=== PATIENT | male | born 1975 | race Caucasian/White ===

== ENCOUNTER 2018-08-31 15:13 | Outpatient (REF) | payer OTHER, SELFPAY ==
[2018-08-31 19:22] LABS: Cholesterol 216 mg/dL (50-200); HDL Cholesterol 40 mg/dL (40-60); LDL CHOLESTEROL 149 mg/dL (<100); Triglyceride 127 mg/dL (30-150)
== END 2018-08-31 15:33 ==
LOC: NCHCN 15:13
PROVIDERS: PCP Nurse Practitioner Family; Visit Provider Family Medicine
DX: Z13.220 Encounter for screening for lipoid disorders (principal); Z00.00 Encounter for general adult medical examination without abnormal findings
CPT/HCPCS: 80061; 83721

== ENCOUNTER 2022-06-06 09:11 | Day surgery (SDC) | payer OTHER, SELFPAY ==
[2022-06-06 09:21] VITALS: BP 139/86; PULSE 63; RESP 18; TEMP 37; O2SAT 94
[2022-06-06] MEDS: Lactated Ringers 1,000 ML 80 ML IV (09:48)
--- NOTE | 2022-06-06 10:02 | W.ANESPRE ---
General Info Date of Service Date Performed: 06/06/22 Height: 5 ft 8 in Weight: 110.8 kg Body Mass Index (BMI): 37.1 Surgical Procedure: Operation Date: 06/06/22 10:35 Proposed Procedure Side Surgeon p Colonoscopy Eligio Christie MD Meds Allergies and Home Medications Allergies Allergy/AdvReac Type Severity Reaction Status Date / Time No Known Allergies Allergy Verified 06/06/22 09:20 Home Medication Medication Instructions Recorded Unknown [No Known Home Meds] 05/26/22 bisacodyl 5 mg tablet,delayed 5 mg PO ONCE #4 tabs 05/26/22 release (Dulcolax (bisacodyl)) polyethylene glycol 3350 17 17 g PO ONCE #238 grams 05/26/22 gram/dose oral powder Current Visit Medications: Current Medications Generic Name Dose Route Start Last Admin Trade Name Freq PRN Reason Stop Dose Admin Ringer's Solution 1,000 mls @ 80 mls/hr 06/06/22 06:00 06/06/22 09:48 IV 06/06/22 23:59 80 mls/hr INFUSION FRANCIS Administration IV Miscellaneous Supplies 1 each 06/06/22 06:00 Iv Access IV 06/06/22 23:59 DIRECTED FRANCIS Sodium Chloride 0 ml 06/06/22 06:00 Normal Saline Flush 10 Ml Syr IV 06/06/22 23:59 PRN PRN Sodium Chloride 0 ml 06/06/22 06:00 Normal Saline 10 Ml Vial IJ 06/06/22 23:59 DIRECTED PRN Sterile Water 0 ml 06/06/22 06:00 Water,Injection,Sterile 10 Ml Vial IJ 06/06/22 23:59 DIRECTED PRN PFSH Active Problems Active Problems: Problem Status Onset Code GERD (gastroesophageal reflux disease) K21.9 Screening for colon cancer Z12.11 Medical History Medical History BMI 36.0-36.9,adult Umbilical hernia Tobacco Smoking/Tobacco Use Status: Former Tobacco Use Alcohol Alcohol Intake: current Alcohol intake frequency: 0-2 drinks per day Alcohol type: beer Substance Use Substance use: Never Substance use type: does not use Vital Signs and Lab Results Vital Signs Most Recent Vital Signs in EMR: Most Recent Vital Signs Temp Pulse Resp BP Pulse Ox 37 C 63 18 139/86 94 06/06/22 09:21 06/06/22 09:21 06/06/22 09:21 06/06/22 09:21 06/06/22 09:21 Lab Results Blood Type / Crossmatch: No Data to Display Complete Blood Count: No Data to Display Complete Metabolic Panel: No Data to Display Liver Function Panel: No Data to Display Coagulation Panel: No Data to Display Cardiac Panel: No Data to Display Arterial Blood Gas: No Data to Display Venous Blood Gas: No Data to Display Pancreas Panel: No Data to Display Thyroid Panel: No Data to Display Infectious Disease: No Data to Display Blood Cultures: No Data to Display Toxicology Panel: No Data to Display Anesthesia Assessment and Plan Anesthesia History Personal History: No History of Anesthesia Complications Family History: No Family History of Anesthesia Complications Exercise Tolerance Exercise Tolerance: Metabolic Equivalents>4 Pertinent Negatives Pertinent Negatives: No Major Cardiovascular Symptoms or Complaints, No Major Pulmonary Symptoms or Complaints and No History of CVA/TIA Cardiac & Pulmonary Exam Cardiac Exam: Normal S1/S2 Heart Sounds Pulmonary Exam: Clear Bilateral Breath Sounds Implantable Cardiac Device Does patient have a Pacemaker or an ICD?: No Airway Exam Known Difficult Airway: No Mallampati Class: 3 Mouth Opening: Normal (> 3cm) Thyromental Distance: Greater than 3 cm Neck Range of Motion: Full ROM Neck Circumference: Normal Teeth Condition: Generalized Poor Dentition and Removable Dentures/Plates Upper ASA Classification ASA Score: ASA 3 Emergency Case?: No NPO Status NPO Status: NPO Clears >2 hours, Solids >8 hours Anesthesia Plan Resuscitation Status: Full Code Anesthesia Technique: General Anesthesia Airway Planned: Natural Airway Monitors Used: Standard Monitors
[2022-06-06 10:13] VITALS: BMI 37.1
--- NOTE | 2022-06-06 10:39 | BOWEL_PTH ---
PATIENT: Brandin Mathew LOC: [facility] U#:[id number] AGE/SX: 47/M ROOM: RE06/06/[address]: Eligio Christie : 1975 BED: DIS: 06/06/2022 SPEC #: [id number] RECD: 06/06/22 12:28 STATUS: FAB RE #: [id number] BENJAMIN: 06/06/22 10:[address]: Eligio Christie DEPT: Surgical Specimen RECD BY: Saima Arevalo ENTERED: 06/06/22 12:30 SP TYPE: Bowel OTHR DR: Brandin Romero Tissues: 1 - BIOPSY BOWEL 2 - BIOPSY BOWEL 3 - BIOPSY BOWEL 4 - BIOPSY BOWEL Procedures: GROSS AND MICRO LEVEL 4 Comments: [id number]
[2022-06-06 10:54] VITALS: BP 126/82; PULSE 77; RESP 18; TEMP 36.4; O2SAT 94
--- NOTE | 2022-06-06 10:59 | ENDO_ITS ---
Date of service: 06/06/22 Time of Service: 11:03 Endoscopy Report PROCEDURE DESCRIPTION: Procedures performed: 1. Colonoscopy with snare polypectomy x4 Preoperative diagnosis: Screening colonoscopy Postoperative diagnosis: Colon polyps Surgeon: Tutu Christie Anesthesia: Jeremy Indication for procedure: Patient is a 47-year-old man who has never had a colonoscopy. There is no family history of colon cancer or colon polyps. He is not having any symptoms. Findings: In the proximal descending colon a 3-5 mm sessile polyp was removed with hot snare technique. In the sigmoid colon a very flat and broad, 5-7 mm sessile polyp was removed with hot snare technique. In the proximal rectum a mildly pedunculated 7-10 mm polyp was removed with hot snare technique. In the distal rectum a 10-12 mm sessile polyp was removed with hot snare technique. All of the polyps were felt to be completely/adequately resected. Surveillance/follow-up recommendations: Pending path results the most likely follow-up will be 3 years unless dysplasia present in any of them which would wa rrant sooner surveillance to ensure no regrowth. Complications: None Blood loss: Minimal Procedure in detail: Written consent was obtained from the patient who was in agreement with the risks, benefits and indications of the procedure. We went to the endoscopy suite and laid the patient in left lateral decubitus position. Anesthesia was administered which was tolerated well. A timeout was performed and when we are all in agreement we began the procedure. Digital rectal exam and visual examination was performed and within normal limits. A well?lubricated colonoscope was advanced without difficulty all the way to the cecum identified by the ileocecal valve, and triangular folds and appendiceal orifice. The terminal ileum was intubated and appeared normal. The scope was then slowly withdrawn. Retroflexion was performed in the rectum. The findings/interventions are noted above. The scope was then removed and the patient tolerated the procedure well and was then taken back to the PACU in hemodynamically stable condition.
--- NOTE | 2022-06-06 15:07 | W.ANESPOSTOP ---
Postoperative Evaluation Date, Time and Location Date Performed: 06/06/22 Time Performed: 15:07 Patient Location: Day Surgery Unit Vital Signs Most Recent Imported Vital Signs: Most Recent Vital Signs Temp Pulse Resp BP Pulse Ox 36.4 C L 77 18 126/82 94 06/06/22 10:54 06/06/22 10:54 06/06/22 10:54 06/06/22 10:54 06/06/22 10:54 Pain Score Most Recent Pain Score: Most Recent Pain Score Pain Level 0 06/06/22 10:54 Assessment Mental Status: Awake (Alert & Oriented to Patient Baseline) Airway and Respiratory Function: Patent airway with normal (patient baseline) respiratory exam Cardiovascular Function: Hemodynamically Stable Hydration Status: Adequately Hydrated Nausea & Vomiting: No Nausea or Vomiting Pain: Pt. Denies Any Pain Peripheral Nerve Block: Patient did not receive a nerve block
== END 2022-06-06 11:37 | disposition home or self-care (01) ==
PROVIDERS: PCP Family Medicine; Visit Provider Student in an Organized Health Care Education/Training Program
PROC: 0DJD8ZZ Inspection of Lower Intestinal Tract, Via Natural or Artificial Opening Endoscopic (ICD-10-PCS; CPT 45378; principal; 2022-06-06 10:30)
DX: Z12.11 Encounter for screening for malignant neoplasm of colon (principal); K63.5 Polyp of colon; K62.1 Rectal polyp
CPT/HCPCS: 45385; 88305

== ENCOUNTER 2022-08-09 11:50 | Outpatient (REF) | payer OTHER, SELFPAY ==
[2022-08-09 15:31] LABS: Hemoglobin A1C 5.2 % (<5.7)
[2022-08-09 15:35] LABS: ALT 70 U/L (16-63); AST 28 U/L (15-37); Albumin 3.9 g/dL (3.4-5.0); Alkaline Phosphatase 67 U/L (46-116); Anion Gap 9.6 mmol/L (3-11); BUN 15 mg/dL (7-18); Bilirubin, Total 0.5 mg/dL (0.2-1.0); CO2 27.4 mmol/L (21.0-32.0); CREATININE 1.3 mg/dL (0.70-1.30); Calcium 9.3 mg/dL (8.5-10.1); Calculated LDL 160 mg/dL (<100); Chloride 102 mmol/L (98-107); Cholesterol 241 mg/dL (<200); Estimated GFR 68.19 (mL/min/1.73m2); Glucose 91 mg/dL (74-106); HDL Cholesterol 42 mg/dL (40-60); Potassium 3.9 mmol/L (3.5-5.1); Sodium 139 mmol/L (136-145); Total Protein 7.1 g/dL (6.4-8.2); Triglyceride 197 mg/dL (<150)
[2022-08-10 10:32] LABS: HIV-1/2 Ag & Ab Screen Negative (Negative)
[2022-08-10 10:42] LABS: Hepatitis C Ab w Rflx HCV PCR Negative (Negative)
== END 2022-08-09 11:51 | disposition home or self-care (01) ==
LOC: NCHCN 11:50
PROVIDERS: PCP Family Medicine; Visit Provider Family Medicine
DX: E66.9 Obesity, unspecified (principal); Z00.00 Encounter for general adult medical examination without abnormal findings
CPT/HCPCS: 80053; 80061; 86803; 87389; 83036

== ENCOUNTER 2023-09-28 17:04 | Outpatient (REF) | payer OTHER, SELFPAY ==
[2023-09-28 20:04] LABS: HCT 46.5 % (40.0-50.0); MCH 30.7 pg (27.0-33.0); MCHC 34.4 % (32.0-36.0); MCV 89 fL (80-95); MPV 9.9 fL (8.0-11.0); Platelet Count 327 10^3/uL (130-400); RBC 5.21 10^6/uL (4.36-5.78); RDW 12.4 % (11.8-14.1); RDW-SD 40.5 fL; WBC 7.21 10^3/uL (4.4-10.8)
[2023-09-28 20:31] LABS: ALT 78 U/L (16-63); AST 28 U/L (15-37); Albumin 3.7 g/dL (3.4-5.0); Alkaline Phosphatase 63 U/L (46-116); Anion Gap 13.1 mmol/L (3-11); BUN 14 mg/dL (7-18); Bilirubin, Total 0.4 mg/dL (0.2-1.0); CO2 24.9 mmol/L (21.0-32.0); Calcium 8.7 mg/dL (8.5-10.1); Chloride 105 mmol/L (98-107); Estimated GFR 92.84 (mL/min/1.73m2); Ferritin 544 ng/mL (26-388); Glucose 103 mg/dL (74-106); Potassium 3.6 mmol/L (3.5-5.1); Sodium 143 mmol/L (136-145); Total Protein 7.1 g/dL (6.4-8.2)
[2023-09-28 20:40] LABS: Hemoglobin A1C 5.5 % (<5.7)
[2023-09-30 09:02] LABS: Hepatitis B Surface Ag Negative (Negative)
== END 2023-09-28 17:05 | disposition home or self-care (01) ==
LOC: NCHCN 17:04
PROVIDERS: PCP Family Medicine; Visit Provider Family Medicine
DX: R74.01 Elevation of levels of liver transaminase levels (principal); Z13.1 Encounter for screening for diabetes mellitus
CPT/HCPCS: 80053; 85027; 87340; 82728; 83036